=== PATIENT | female | born 1985 | race Caucasian/White ===

== ENCOUNTER 2017-03-24 19:37 | Emergency (ER) | payer MEDICAID, OTHER ==
[2017-03-24 19:51] VITALS: BP 126/73; PULSE 85; RESP 18; TEMP 98.4; O2SAT 100
--- NOTE | 2017-03-24 20:08 | C.PDOC ---
History Of Present Illness 32 yr old female with PMHx of asthma, presents to the ER requesting a prescription for an asthma pump. 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 Patient denies fever, chills, chest pain, chest tightness, SOB, wheezing, or URI sx. Time Seen by Provider: 03/24/17 19:52 Chief Complaint (Nursing): Med Refill History Per: Patient History/Exam Limitations: no limitations Onset/Duration Of Symptoms: Days Past Medical History Reviewed: Historical Data, Nursing Documentation, Vital Signs Vital Signs: Last Vital Signs Temp 98.4 F 03/24/17 19:49 Pulse 85 03/24/17 19:49 Resp 18 03/24/17 19:49 BP 126/73 03/24/17 19:49 Pulse Ox 100 03/24/17 21:20 - Medical History PMH: Asthma Family History: States: No Known Family Hx - Social History Hx Alcohol Use: No Hx Substance Use: No - Immunization History Hx Tetanus Toxoid Vaccination: No Hx Influenza Vaccination: No Hx Pneumococcal Vaccination: No Review Of Systems Except As Marked, All Systems Reviewed And Found Negative. Constitutional: Negative for: Fever, Chills Cardiovascular: Negative for: Chest Pain Respiratory: Negative for: Shortness of Breath, Wheezing Gastrointestinal: Negative for: Vomiting Neurological: Negative for: Weakness, Numbness Physical Exam - Physical Exam Appears: Non-toxic, No Acute Distress Skin: Warm, Dry, No Rash Eye(s): bilateral: Normal Inspection Oral Mucosa: Moist Chest: Symmetrical, No Tenderness Cardiovascular: Rhythm Regular, No Murmur Respiratory: Normal Breath Sounds, No Rales, No Rhonchi, No Stridor, No Wheezing Extremity: Normal ROM, No Swelling Neurological/Psych: Oriented x3, Normal Speech ED Course And Treatment O2 Sat by Pulse Oximetry: 100 (RA) Pulse Ox Interpretation: Normal Disposition - Disposition Referrals: Prosper Rojas MD [Primary Care Provider] - Disposition: HOME/ ROUTINE Disposition Time: 20:06 Condition: STABLE Additional Instructions: Please follow up with PMD Return to ER if worse Prescriptions: Albuterol HFA [Ventolin HFA 90 mcg/actuation (8 g)] 2 puff IH [id number] #1 inhaler Forms: [employer] (Djiboutian), General Discharge Instructions - Clinical Impression Clinical Impression: Medication refill, Asthma - PA / REGION MANAGER / Resident Statement MD/DO has reviewed & agrees with the documentation as recorded. - Scribe Statement The provider has reviewed the documentation as recorded by the Scribe Donna Junior All medical record entries made by the Scribe were at my direction and personally dictated by me. I have reviewed the chart and agree that the record accurately reflects my personal performance of the history, physical exam, medical decision making, and the department course for this patient. I have also personally directed, reviewed, and agree with the discharge instructions and disposition.
== END 2017-03-24 20:25 | disposition home or self-care (01) ==
LOC: SUPCPDRO 19:37 → C.ER 19:37
DX: Z76.0 Encounter for issue of repeat prescription (principal); J45.909 Unspecified asthma, uncomplicated

== ENCOUNTER 2017-06-28 08:35 | Emergency (ER) | payer OTHER ==
[2017-06-28] MEDS ORDERED: Albuterol-Ipratrop 3 mg / 0.5 (3 ml) UD INH STA (09:39)
[2017-06-28] MEDS ORDERED: Sodium Chloride 0.9% 1,000 ML IV ONE (09:39)
--- NOTE | 2017-06-28 09:51 | C.PDOC ---
History Of Present Illness 32 year old female, with PMHx of asthma, presents to ED for evaluation of lower abdominal discomfort associated with decrease in appetite, nausea, and 1 episode of vomiting and diarrhea each yesterday. Pt also complaints of cough, chest tightness, and mild dizziness. Denies dysuria, hemturia, urinary frequency /retention, back pain, headache, or fever. Time Seen by Provider: 06/28/17 08:46 Chief Complaint (Nursing): Abdominal Pain History Per: Patient History/Exam Limitations: no limitations Onset/Duration Of Symptoms: Days Current Symptoms Are (Timing): Still Present Location Of Pain/Discomfort: Suprapubic Radiation Of Pain To:: None Quality Of Discomfort: "Pain" Associated Symptoms: Nausea, Vomiting, Diarrhea, Loss Of Appetite. denies: Fever, Chills, Back Pain, Constipation, Urinary Symptoms Exacerbating Factors: None Alleviating Factors: None Recent travel outside of the [place]: No Additional History Per: Patient Abnormal Vaginal Bleeding: No Past Medical History Reviewed: Historical Data, Nursing Documentation, Vital Signs Vital Signs: Last Vital Signs Temp 98.5 F 06/28/17 11:05 Pulse 86 06/28/17 11:05 Resp 18 06/28/17 11:05 BP 100/61 06/28/17 11:05 Pulse Ox 99 06/28/17 13:01 - Medical History PMH: Asthma Surgical History: Family History: States: Unknown Family Hx - Social History Hx Tobacco Use: No Hx Alcohol Use: No Hx Substance Use: No - Immunization History Hx Tetanus Toxoid Vaccination: No Hx Influenza Vaccination: No Hx Pneumococcal Vaccination: No Review Of Systems Constitutional: Negative for: Fever, Chills ENT: Negative for: Ear Pain, Nose Discharge, Throat Pain Cardiovascular: Positive for: Chest Pain (tightness). Negative for: Palpitations, Light Headedness Respiratory: Positive for: Cough. Negative for: Shortness of Breath, Sputum Gastrointestinal: Positive for: Nausea, Vomiting, Abdominal Pain, Diarrhea Genitourinary: Negative for: Dysuria, Frequency, Hematuria, Vaginal Discharge Musculoskeletal: Negative for: Neck Pain, Back Pain Neurological: Positive for: Dizziness. Negative for: Weakness, Numbness, Headache Physical Exam - Physical Exam Appears: Non-toxic, No Acute Distress Skin: Normal Color, Warm, Dry Head: Atraumatic, Normacephalic Eye(s): bilateral: Normal Inspection Ear(s): Bilateral: Normal Nose: Normal Oral Mucosa: Dry Tongue: Normal Appearing Lips: Normal Appearing Throat: Normal, No Erythema, No Exudate, No Drooling Neck: Normal ROM, Supple Chest: Symmetrical Cardiovascular: Rhythm Regular, No Murmur Respiratory: Normal Breath Sounds, No Rales, No Rhonchi, No Wheezing Gastrointestinal/Abdominal: Bowel Sounds (normal), Soft, Tenderness (mild lower) , No Distention, No Guarding, No Rebound Back: No CVA Tenderness Pelvic: Normal External Exam, No Vaginal Bleeding, Vaginal Discharge (whitish yellow), No Cervical Motion Tenderness, No Cervix Open, Adnexal Tenderness ( bilateral, no masses) Extremity: Normal ROM, No Pedal Edema, No Deformity Neurological/Psych: Oriented x3, Normal Speech ED Course And Treatment - Laboratory Results Result Diagrams: 06/28/17 09:54 06/28/17 09:54 O2 Sat by Pulse Oximetry: 99 (RA) Pulse Ox Interpretation: Normal Medical Decision Making Medical Decision Making: Blood work, UA ordered and reviewed. Patient was given Pepcid, Zofran, IV fluids, and Duoneb treatment. 1120 am pt reports breathing better, no longer nauseous, still with some lower abdominal discomfort. abdomen re-examined; pt has normoactive bs, soft, nd, mild lower tenderness, no rebound or guarding. no urinary symptoms. pt with no white count, no fever; will give toradol and re-assess. 1230 pm with mild low ab pain; now reports she has vaginal discharge for 3 weeks, no dysparuneia, one partner. pelvic exam done, mild bialteral adnexal trenderness. no masses, no cmt. gc/chlamydia done. Disposition Counseled Patient/Family Regarding: Studies Performed, Diagnosis, Need For Followup, Rx Given - Disposition Referrals: [facility] [Outside] Disposition: HOME/ ROUTINE Disposition Time: 12:56 Condition: IMPROVED Additional Instructions: Please follow up with medical clinic in a few days. Take nausea medicine if needed. Use inhaler as needed. Return to ER for any worse pain, fever, persistent vomiting or any other concerning symptoms. Prescriptions: Albuterol HFA [Ventolin HFA 90 mcg/actuation (8 g)] 2 puff IH Q6 #1 inhaler Ondansetron ODT [Zofran ODT] 4 mg PO TID #12 odt Instructions: Viral Syndrome (ED) Forms: [facility] (Welsh), General Discharge Instructions - Clinical Impression Clinical Impression: Viral syndrome - PA / CRM SOLUTION ARCHITECT / Resident Statement MD/DO has reviewed & agrees with the documentation as recorded. - Scribe Statement The provider has reviewed the documentation as recorded by the Scribe Zoe Rahman All medical record entries made by the Scribe were at my direction and personally dictated by me. I have reviewed the chart and agree that the record accurately reflects my personal performance of the history, physical exam, medical decision making, and the department course for this patient. I have also personally directed, reviewed, and agree with the discharge instructions and disposition.
[2017-06-28] MEDS ORDERED: Sodium Chloride 0.9% 1,000 ML ONE (09:56)
[2017-06-28] MEDS ORDERED: Albuterol-Ipratrop 3 mg / 0.5 (3 ml) UD ONE (09:56)
[2017-06-28 09:59] LABS: BASO % 0.5 % (0.0-2.0); EOS # 0.1 K/uL (0.0-0.7); EOS % 2.4 % (0.0-4.0); HEMATOCRIT 40.3 % (34.0-47.0); LYMPH # 0.6 K/uL (1.0-4.3); LYMPH % 12.3 % (20.0-40.0); MEAN CELL VOLUME 92.5 fL (81.0-99.0); MEAN CORPUSCULAR HEMOGLOBIN 32.5 pg (27.0-31.0); MEAN CORPUSCULAR HGB CONC 35.1 g/dL (33.0-37.0); MEAN PLATELET VOLUME 9.4 fL (7.2-11.7); MONO # 0.5 K/uL (0.0-0.8); MONO % 9.5 % (0.0-10.0); RED CELL DISTRIBUTION WIDTH 11.7 % (11.5-14.5)
[2017-06-28 10:10] LABS: ALKALINE PHOSPHATASE 68 U/L (38-126); ALT/SGPT 38 U/L (9-52); AST/SGOT 23 U/L (14-36); BLOOD UREA NITROGEN 12 mg/dL (7-17); CALCIUM 8.2 mg/dl (8.6-10.4); CARBON DIOXIDE 28 mmol/L (22-30); CHLORIDE 98 mmol/L (98-107); GFR AFRICAN-AMERICAN > 60; GLUCOSE,RANDOM 92 mg/dL (65-105); POTASSIUM 3.8 mmol/L (3.6-5.2); SODIUM 135 mmol/L (132-148); TOTAL PROTEIN 8.4 g/dL (6.3-8.3)
[2017-06-28 10:17] LABS: RBC URINE 8 /hpf (0-3); URINE BACTERIA RARE (<OCC); URINE BILIRUBIN NEGATIVE (NEGATIVE); URINE BLOOD 1+ (NEGATIVE); URINE COLOR Yellow (YELLOW); URINE GLUCOSE (UA) NORMAL (Normal); URINE KETONE 1+ mg/dL (NEGATIVE); URINE LEUKOCYTE ESTERASE 2+ Leu/uL (Negative); URINE PROTEIN 1+ mg/dL (NEGATIVE); URINE UROBILINOGEN NORMAL mg/dL (0.2-1.0); WBC URINE 9 /hpf (0-5)
[2017-06-28 13:28] VITALS: BP 102/67; PULSE 74; RESP 20; TEMP 97.9
[2017-06-28 18:26] VITALS: O2SAT 99
== END 2017-06-28 13:28 | disposition home or self-care (01) ==
LOC: C.ER 08:35
DX: B34.9 Viral infection, unspecified (principal)
CPT/HCPCS: 80053; 81001; 85025; 87491; 87591; 94640; 96361; 96374; 96375; 99285; J1885; J2405; J7040